=== PATIENT | female | born 1935 | race Caucasian/White ===

== ENCOUNTER 2019-02-12 09:56 | Inpatient (IN) | payer OTHER ==
[2019-02-12 10:15] LABS: PLATELET COUNT 314 10^3/uL (150-400)
--- NOTE | 2019-02-12 10:43 | EDPHY ---
H & P Time Seen by Provider: 02/12/19 10:36 HPI/ROS: Chief complaint. Syncope HPI. Patient 83-year-old female here by EMS after multiple syncopal episodes in [place]. She was standing and really had no prodrome and then slumped over. She laid down and then they tried to stand her back up and she had another syncopal episode. She has no injury. No fever cough. No chest discomfort or shortness of breath. She feels fairly back to normal. She tells me no previous syncope but daughter says that she may be did have a syncopal episode about 6 years ago. ROS 10 systems were reviewed and negative with the exception of the elements mentioned in the history of present illness Past Medical/Surgical History: Medication for heart problem, hypertension, chronic low back pain, dementia Social History: , nonsmoker, no alcohol Smoking Status: Never smoked Physical Exam: General Appearance: Alert well-developed female mild distress vital signs are stable Eyes: Pupils equal and round no pallor or injection. ENT, Mouth: Mucous membranes are moist. Respiratory: There are no retractions, lungs are clear to auscultation. Cardiovascular: Regular rate and rhythm. Gastrointestinal: Abdomen is soft and nontender, no masses, bowel sounds normal. Neurological: Awake and alert, sensory and motor exams grossly normal. Skin: Warm and dry, no rashes. Musculoskeletal: Neck is supple nontender. Extremities symmetrical, full range of motion. Psychiatric: Patient is oriented X 3, there is no agitation. Constitutional: Initial Vital Signs Temperature (C) 36.3 C 02/12/19 10:03 Heart Rate 62 02/12/19 10:03 Respiratory Rate 16 02/12/19 10:03 Blood Pressure 131/71 H 02/12/19 10:03 O2 Sat (%) 96 02/12/19 10:03 O2 Delivery Mode Room Air Allergies/Adverse Reactions: No Known Allergies Allergy (Verified 02/06/15 14:26) Home Medications: Medication Instructions Recorded traMADol [Ultram] 50 mg PO DAILY 02/18/14 Losartan/Hydrochlorothiazide 1 each PO DAILY 02/12/19 [Losartan-Hctz 100-25 mg Tab] Memantine HCl [Namenda] 10 mg PO DAILY 02/12/19 Medical Decision Making - Diagnostics EKG Interpretation: EKG interpreted by me as normal sinus rhythm. First-degree AV block. Normal axis. No significant ST elevation or depression. No arrhythmia. The rate is 60 Imaging Results: Imaging Impressions Chest X-Ray 02/12/19 10:56 Impression: 1. Negative portable chest. No acute process. 2. Hiatal hernia, chronic airways disease, and borderline cardiomegaly are unchanged since 5 years prior. Procedures: IV normal saline, ED Course/Re-evaluation: I consulted discussed case with Dr. Bae, hospitalist, who agrees to the admission Re-evaluation patient remained stable. The patient her daughter and I discussed imaging lab an EKG findings. We discussed treatment plan including recommendation for admission. They expressed understanding and agreement Differential Diagnosis: I considered a arrhythmia, acute coronary syndrome, electrolyte abnormality, orthostatic hypotension - Data Points Laboratory Results: Laboratory Results 02/12/19 10:00 02/12/19 10:00 02/12/19 02/12/19 02/12/19 10:04 10:00 10:00 WBC RBC Hgb Hct MCV MCH MCHC RDW Plt Count MPV Neut % (Auto) Lymph % (Auto) [place] % (Auto) Eos % (Auto) Baso % (Auto) Nucleat RBC Rel Count Absolute Neuts (auto) Absolute Lymphs (auto) Absolute Monos (auto) Absolute Eos (auto) Absolute Basos (auto) Absolute Nucleated RBC Immature Gran % Immature Gran # Sodium 128 mEq/L L mEq/L (135-145) Potassium 3.8 mEq/L mEq/L (3.5-5.2) Chloride 93 mEq/L L mEq/L (97-110) Carbon Dioxide 24 mEq/l mEq/l (22-31) Anion Gap 11 mEq/L mEq/L (6-14) BUN 34 mg/dL H mg/dL (7-23) Creatinine 1.1 mg/dL H mg/dL (0.6-1.0) Estimated GFR 47 Glucose 98 mg/dL mg/dL (70-100) Calcium 9.3 mg/dL mg/dL (8.5-10.4) POC Troponin I 0.00 ng/mL ng/mL (0.00-0.08) NT-Pro-B Natriuret Pep 130 pg/mL pg/mL (0-450) 02/12/19 10:00 WBC 5.22 10^3/uL 10^3/uL (3.80-9.50) RBC 3.35 10^6/uL L 10^6/uL (4.18-5.33) Hgb 11.3 g/dL L g/dL (12.6-16.3) Hct 32.0 % L % (38.0-47.0) MCV 95.5 fL fL (81.5-99.8) MCH 33.7 pg pg (27.9-34.1) MCHC 35.3 g/dL g/dL (32.4-36.7) RDW 14.2 % % (11.5-15.2) Plt Count 314 10^3/uL 10^3/uL (150-400) MPV 9.7 fL fL (8.7-11.7) Neut % (Auto) 59.0 % % (39.3-74.2) Lymph % (Auto) 25.7 % % (15.0-45.0) [place] % (Auto) 10.9 % % (4.5-13.0) Eos % (Auto) 2.9 % % (0.6-7.6) Baso % (Auto) 1.1 % % (0.3-1.7) Nucleat RBC Rel Count 0.0 % % (0.0-0.2) Absolute Neuts (auto) 3.08 10^3/uL 10^3/uL (1.70-6.50) Absolute Lymphs (auto) 1.34 10^3/uL 10^3/uL (1.00-3.00) Absolute Monos (auto) 0.57 10^3/uL 10^3/uL (0.30-0.80) Absolute Eos (auto) 0.15 10^3/uL 10^3/uL (0.03-0.40) Absolute Basos (auto) 0.06 10^3/uL 10^3/uL (0.02-0.10) Absolute Nucleated RBC 0.00 10^3/uL 10^3/uL (0-0.01) Immature Gran % 0.4 % % (0.0-1.1) Immature Gran # 0.02 10^3/uL 10^3/uL (0.00-0.10) Sodium Potassium Chloride Carbon Dioxide Anion Gap BUN Creatinine Estimated GFR Glucose Calcium POC Troponin I NT-Pro-B Natriuret Pep Medications Given: Sodium Chloride (Ns) 1,000 mls @ 100 mls/hr IV CONT GIULIANA Stop: 02/13/19 00:29 Last Admin: 02/12/19 15:31 Dose: 1,000 mls Discontinued Medications Sodium Chloride (Ns) 500 mls @ 0 mls/hr IV EDNOW ONE; Wide Open PRN Reason: Protocol Stop: 02/12/19 10:57 Last Admin: 02/12/19 11:10 Dose: 500 mls Point of Care Test Results: Chemistry 02/12/19 10:04 POC Troponin I 0.00 ng/mL ng/mL (0.00-0.08) Departure - Departure Disposition: [facility] Inpatient Acute Clinical Impression: Syncope Qualifiers: Syncope type: unspecified Qualified Code(s): R55 - Syncope and collapse Condition: Fair
[2019-02-12] MEDS ORDERED: NS 500 ML IV ONE (10:56)
[2019-02-12] MEDS ORDERED: ACETAMINOPHEN 325 MG TAB PO PRN (14:25)
[2019-02-12] MEDS ORDERED: ONDANSETRON 4 MG/2 ML VIAL IVP PRN (14:25)
[2019-02-12] MEDS ORDERED: NS 1,000 ML IV SCH (14:30)
--- NOTE | 2019-02-12 15:21 | CPEKG ---
Test Reason : OPEN Blood Pressure : / mmHG Vent. Rate : 060 BPM Atrial Rate : 060 BPM P-R Int : 246 ms QRS Dur : 097 ms QT Int : 436 ms P-R-T Axes : -20 020 025 degrees QTc Int : 436 ms Sinus rhythm Prolonged NE interval Low voltage, extremity leads Confirmed by Jose Dowling ([id number]) on 02/12/2019 3:20:25 PM Referred By: PHYSICIAN ED Confirmed By:Jose Dowling
--- NOTE | 2019-02-12 15:56 | GHP ---
[f rep st] HISTORY AND PHYSICAL DATE OF ADMISSION: 02/12/2019 CHIEF COMPLAINT: Syncope. HISTORY: The patient is an 83-year-old female, who was at [facility] this morning at 8:30 standing next to her son-in-law. He noticed that she suddenly reached for the pew in front of her. He called out to her but she seemed very dazed and she fell to the left and drifted over. There happened to be a p hysician at [facility] with them that morning who came over, felt her pulse and thought it to be thready. They lied her down on the ground. Her pulse seemed to be getting a little stronger so they sat her back up, but at that point, her pulse became thready again and she passed out again and EMS was call ed. When EMS arrived, her blood pressure was low. She was given IV fluid in the field. The patient has otherwise been feeling fine lately. Her diet and fluid intake have been at baseline. She has had no recent illnesses. She denies any pain. According to her daughter, she drinks very little fluid due to a low thirst drive and the daughter is constantly trying to get her to drink more water. She has a history of celiac disease, but due to her dementia she sometimes forgets and will eat a gluten that is in the home as not everyone in the household is gluten free. They do follow a l ow-salt diet. There has been no chest pain or shortness of breath. There were no stroke or seizure- like symptoms. There has been no recent diarrhea or vomiting. PAST MEDICAL HISTORY: 1. Hypertension. 2. SIADH with chronic hyponatremia. 3. Spinal stenosis. 4. Celiac disease. 5. Dementia. 6. B12 deficiency. MEDICATIONS: Please see computerized record for full details. ALLERGIES: No known drug allergies. SOCIAL HISTORY: No smoking. Very occasional glass a wine. Lives with her daughter and daughter's ghulam yu. She is a DNR. REVIEW OF SYSTEMS: Complete review of systems obtained. Review of systems negative regarding consti tutional, HEENT, GI, pulmonary, cardiovascular, , hematology, skin, muscular, endocrine, psych exce pt for positives and negative as in HPI. FAMILY HISTORY: Reviewed and noncontributory to presenting complaint. PHYSICAL EXAMINATION: GENERAL: Well-developed, well-nourished female, in no acute distress. VITAL SIGNS: Temperature is 36.3, pulse 70, blood pressure 112/72, saturating 96% on room air. EYES: Nor mal conjunctivae. Pupils react to light. ENT: Normal ears and nose. Hearing intact. Normal teeth . Oropharynx: Moist. NECK: Trachea midline. No thyromegaly. CHEST: Normal respiratory effort. LUNGS: Clear to auscultation bilaterally. CARDIOVASCULAR: Regular rate and rhythm. No murmur. E XTREMITIES: No lower extremity edema. ABDOMEN: Soft, nontender. No hepatosplenomegaly. SKIN: Wa rm, dry, intact without rash. MUSCULOSKELETAL: No cyanosis or clubbing. Strength 5/5 upper and low er extremities. NEUROLOGIC: Cranial nerves intact. Normal sensation to light touch. PSYCH: Alert and oriented x3. Normal affect. Normal judgment. Normal memory. LABORATORY DATA: White count 5.22, hematocrit 32.0, platelets 314. Sodium 128, potassium 3.8, chlor kareem 93, bicarb 24, BUN 34, creatinine 1.1. Glucose 98. BNP is 130. Troponins negative. EKG reviewed by me. My personal interpretation is normal sinus rhythm, prolonged VA interval. Chest x-ray is negative. ASSESSMENT/PLAN: 1. Syncope. It appears she had hypotension in the field. I suspect she is dehydrated due to her di uretic. Will watch her on telemetry. Check an echocardiogram and serial troponins. We will check o rthostatics. We will check a TSH. Will hydrate with IV fluids and hold hydrochlorothiazide. 2. Hyponatremia. She has syndrome of inappropriate antidiuretic hormone noted in the past with animal [facility] supervisor jessica hyponatremia on previous admissions. Urine sodiums have always been high. According to the daug hter, hydrochlorothiazide was started 1 year ago by her new primary care doctor when some lower extre mity edema was noted. This may have worsened her chronic underlying hyponatremia. She follows a low -salt diet and has never been told in the past to follow fluid restriction. We will discontinue hydr ochlorothiazide. There is no utility to repeating a urine sodium as she is currently actively on the diuretic. Urine sodium has been elevated in the past prior to initiating hydrochlorothiazide. Kyle mmended a liberalized salt diet and not pushing oral fluids. 3. Hypertension. We will discontinue hydrochlorothiazide and continue losartan alone. 4. Dementia. She is at baseline. Continue Namenda. 5. Celiac disease. Continue gluten-free diet. 6. Pelvic mass. There is a suprapubic pelvic firmness felt on exam. We will check an ultrasound. 7. Deep vein thrombosis prophylaxis. She is high risk. Will place on subcu Lovenox. CODE STATUS: DNR. ADMISSION STATUS: Will admit to observation. Reevaluate tomorrow regarding ongoing need for hospita lization. /[id number]/MODL
[2019-02-13 04:23] LABS: PLATELET COUNT 285 10^3/uL (150-400)
[2019-02-13] MEDS ORDERED: LOSARTAN POTASSIUM 50 MG TAB PO SCH (09:00)
[2019-02-13] MEDS: ENOXAPARIN 40 MG/0.4 ML SYR SC SCH (09:02)
[2019-02-13] MEDS: traMADol 50 MG TAB PO SCH (09:02)
[2019-02-13] MEDS: MEMANTINE HCL 5 MG TAB PO SCH (09:02)
--- NOTE | 2019-02-13 11:35 | ASMTCMCOM ---
CM Note CM Note Notes: Pts case discussed in treatment rounds. Pt is a 83 y/o female admitted for 2 syncopal episode. Therapies have been ordered and awaiting recommendations. Pt lives w/ her daughter and daughters family. Pts daughter is a RN. Needs are TBD at this time. CM to follow. Plan: TBD Date Signed: 02/13/2019 11:34 AM Electronically Signed By:SHADY Zhang
[2019-02-13] MEDS: LOSARTAN POTASSIUM 50 MG TAB PO SCH (12:35)
--- NOTE | 2019-02-13 13:39 | HOSPPROG ---
Hospitalist Progress Note Assessment/Plan: DIAGNOSES: * Syncope at home has not recurred here * Dehydration, hydrochlorothiazide likely a contributing factor * Acute kidney injury, likely due to dehydration and TAB-inhibitor * Hyponatremia due to combination of SIADH and hydrochlorothiazide * Normocytic anemia; appears likely chronic and I doubt she is bleeding but there is a drop overnight. This could be purely delusional but will want to recheck to make sure it is not dropping further * Pelvic mass on physical exam is found to be mons pubis by ultrasound, no further evaluation needed * Fall risk * Essential hypertension * Dementia * Celiac disease PLANS: * Will begin Oral fluid restriction, I have started education for patient and her daughter; however given the fact that she is 83 and has some dementia it is very likely that she has very poor oral fluid intake to begin with and fluid restriction may be insufficient * Stop her hydrochlorothiazide now and will continue off of that as outpatient; will need to follow her blood pressures and watch for any possible edema and consider other options such as non-diuretic antihypertensives, Lasix, or urea tablets as needed * Recheck her sodium in morning * Recheck hemoglobin in a.m. for stability * Losartan held this a.m. due to lower blood pressures; was given mid day * Will need to follow blood pressures closely make sure she is not at further risk for falling or injury * Due to need for ongoing monitoring and management as above, will need to keep her here in the hospital so will change to inpatient Seen by me today on hospitals rounds as well as multidisciplinary rounds I met with daughter at bedside today and discussed all of above in significant detail and answered questions for her SUBJECTIVE: Feeling better so far today OBJECTIVE Vitals reviewed: No signs of orthostasis were seen on measured numbers yesterday; intermittent hypotension at rest today Remotely Operated Vehicle, my review: Sinus rhythm Exam: alert oriented skin warm dry color ok resps not labored lungs clear BSs heart regular abd soft nondistended nontender, bowel sounds present limbs warm, no edema iv site ok Lab data: Sodium remains low at 128 Renal function improved creatinine was 0.9 Hemoglobin decreased from 11 to 10 today, normocytic; chronic baseline appears to possibly be approximately 11.5 but rarely checked 2 years ago I reviewed images from her ultrasound of pelvis which shows the palpable soft tissue density to be mons pubis Objective: Vital Signs Temp Pulse Resp BP Pulse Ox 36.5 C 88 12 115/69 90 L 02/13/19 11:00 02/13/19 11:00 02/13/19 11:00 02/13/19 12:34 02/13/19 11:00 Laboratory Results 02/13/19 03:10 02/13/19 03:10 02/12/19 02/13/19 02/14/19 06:59 06:59 06:59 Intake Total 2340 Output Total 1 Balance 2339 - Time Spent With Patient Time Spent with Patient: greater than 35 minutes Time Spent with Patient: Greater than 35 minutes spent on this patients care, greater than 50% of time spent counseling, educating, and coordinating care regarding the above mentioned plan. ICD10 Worksheet Patient Problems: Problems Problem Status Onset Syncope Acute Cardiac syncope Acute Essential hypertension Acute Hyponatremia Acute Sinusitis, acute, maxillary Acute
--- NOTE | 2019-02-13 13:47 | ECHO ---
[email or web address] [address] [address] Main: [phone] Echocardiography Examination Transthoracic Name: LYNN CATALAN MR#: [id number] Study Date: 02/13/2019 Study Time: 11:11 AM Date of : 1935 Age: 83 year(s) Height: 124.5 cm (49 in.) Weight: 59.87 kg (132 lb.) BSA: 1.35 m2 Gender: Female Examination: Echo Contrast: Image Quality: Adequate Rhythm: Normal sinus rhythm Heart Rate: 66 bpm BP: 92 mmHg/57 mmHg Indication: Cardiac: syncope Procedure Staff Referring Physician: Immigration Associate: Shahnaz Arora [facility] Reading Physician: Alex Salgado MD Requesting Provider: Indication: Cardiac: syncope Measurements Chambers AV/MV Label Value Normal Value Label Value Normal Value IVSd, 2D 1.1 cm (0.6cm - 1.1cm) AV PGmax 13 mmHg LVDd, 2D 3.1 cm (3.9cm - 5.3cm) AV PGmean 9 mmHg LVDs, 2D 2.1 cm (2.1cm - 4cm) AV Vmax 1.82 m/s LVEF, 2D 61 % (54% - 74%) LUCY D (continuity eq. 1.9 cm2 LVEF, BP 63 % (55% - 70%) VTI) LVEF, MOD2 62 % (55% - 70%) MV A Vmax 0.68 m/s LVEF, MOD4 65 % (55% - 70%) MV DT 282 ms LVOT PGmean 4 mmHg MV E' lateral 0.07 m/s LVOT Vmean 0.9 m/s MV E' mean 0.06 m/s LVOTd 1.9 cm (1.8cm - 2cm) MV E' septal 0.04 m/s LVPWd, 2D 0.7 cm MV E Vmax 0.89 m/s RVDd, 2D 3.4 cm (1.9cm - 3.8cm) MV E/A 1.31 TAPSE 1.8 cm MV E/E' lateral 12.8 LA Area, A2C 18.2 cm2 (0cm2 - 20cm2) MV E/E' mean 16.18 LA Volume, A2C 51 ml (22ml - 52ml) MV E/E' septal 21.2 (0.45 - 1.25) LA Volume, A4C 57 ml (22ml - 52ml) TV/PV LA Volume, BP 54 ml (22ml - 52ml) Label Value Normal Value LAD Index, 2D 2.67 cm/m2 RA Pressure 5 mmHg LADs, 2D 3.6 cm (2.7cm - 3.8cm) RVSP 26 mmHg LAESV index, MOD4 42.2 ml/m2 TR Pmax 21 mmHg Patient: LYNN CATALAN Study Date: 02/13/2019 Page 1 of 3 11:11 AM RA Area 8.3 cm2 TR Vmax 2.28 m/s Additional Vessels PV PGmax 3 mmHg Label Value Normal Value PV Vmax, Caliper 0.9 m/s (0.6m/s - 0.9m/s) AoAsc 3.2 cm AoRoot, 2D 2.9 cm (1.4cm - 2.6cm) Conclusions Left Ventricle: CONCLUSIONS:1)Normal LV size and sysotlic function with a LVEF of 63% and normal wall motions.2)Mild asymmetrical septal hypertrophy with no obstructing LVOT gradient.Moderate, stage II diastolic dysfunction noted.3)Mild left atrial enlargement noted.4)Aortic valve sclerosis without or AI noted.5)Mild MR without MV prolapse.6)Mild to moderate TR with estimated normal PA pressures. Findings Left Ventricle: Left ventricle is normal in size. CONCLUSIONS: 1)Normal LV size and sysotlic function with a LVEF of 63% and normal wall motions. 2)Mild asymmetrical septal hypertrophy with no obstructing LVOT gradient.Moderate, stage II diastolic dysfunction noted. 3)Mild left atrial enlargement noted. 4)Aortic valve sclerosis without or AI noted. 5)Mild MR without MV prolapse. 6)Mild to moderate TR with estimated normal PA pressures.The ejection fraction, measured by Simpsons method, is 63 %. There is asymmetrical septal hypertrophy without LVOT obstruction. There are no regional wall motion abnormalities. Grade II Diastolic Dysfunction. Right Ventricle: Normal size right ventricle. Right ventricular systolic function is normal. Left Atrium: The left atrium is mildly dilated. IAS: The interatrial septum is thin and anuerysmal with no obvious shunt noted by color flow doppler.. Right Atrium: The right atrium is normal in size. Mitral Valve: Mitral valve appears structurally normal. Mild mitral regurgitation. No mitral valve stenosis. There is mild mitral thickening. Aortic Valve: The aortic valve is structurally normal and trileaflet. No aortic valve regurgitation. There is no aortic stenosis. Aortic leaflets exhibit mild calcification. Tricuspid Valve: Tricuspid valve leaflets are structurally normal. Mild to moderate tricuspid regurgitation. The anterior and septal tricuspid leaflet chordae are elongated. Right Ventricular systolic pressure is measured at 26 mmHg. Pulmonary artery pressure normal. Pulmonic Valve: Pulmonic valve is poorly visualized. Trivial pulmonic valve regurgitation is present. Aorta: The aortic root size in 2D measures 2.9 cm. The aortic root exhibits normal size. The ascending aorta measures 3.2 cm. Ascending aorta is normal in size. Aorta Measurements AoRoot, 2D is 2.9 cm. Patient: LYNN CATALAN Study Date: 02/13/2019 Page 2 of 3 11:11 AM IVC: The inferior vena cava is normal in size and course. Pericardium: No pericardial effusion. Exam Details Procedure Ordered: Echo Procedure Status: Routine study Image Quality: Adequate Facility Location: Cardiac Echo 1 (No Signature Object) Patient: LYNN CATALAN Study Date: 02/13/2019 Page 3 of 3 11:11 AM [id number]
[2019-02-13] MEDS ORDERED: SODIUM BICARBONATE 650 MG TAB PO ONE (14:01)
--- NOTE | 2019-02-14 07:10 | PDMN ---
Medical Necessity Medical necessity: Pt meets inpt criteria per MD order and M-340, Syncope. 83 y/ o w/hx dementia, HTN, SIADH, and spinal stenosis admitted w/syncope/hypotension , dehydration (HCTZ likely contributing factor), and hyponatremia. Upgraded to inpt for ongoing monitoring of pt off HCTZ, start on fluid restriction, sodium still low at 128, normocytic anemia- recheck Hg today, follow BP's. Est LOS>2MN for ongoing management of above.
[2019-02-14] MEDS: ENOXAPARIN 40 MG/0.4 ML SYR SC SCH (09:13)
[2019-02-14] MEDS: MEMANTINE HCL 5 MG TAB PO SCH (09:13)
[2019-02-14] MEDS: LOSARTAN POTASSIUM 50 MG TAB PO SCH (09:14)
[2019-02-14] MEDS: traMADol 50 MG TAB PO SCH (09:14)
--- NOTE | 2019-02-14 16:19 | ASMTCMCOM ---
CM Note CM Note Notes: Pts case discussed in tx rounds. CM met w/ pt and daughter for dispo planning. PT/OT are recommending HC. Pt and daughter are agreeable to HC services through [facility]. [facility] is able to accept. CM confirmed pts address, phone number and PCP. Pts daughter is a RN. CM to follow. Plan: [facility]; PT, OT Date Signed: 02/14/2019 04:18 PM Electronically Signed By:SHADY Zhang
--- NOTE | 2019-02-14 16:30 | HOSPPROG ---
Hospitalist Progress Note Assessment/Plan: DIAGNOSES: * Syncope at home has not recurred here * Dehydration, hydrochlorothiazide likely a contributing factor * Acute kidney injury, likely due to dehydration and TAB-inhibitor * Hyponatremia due to combination of SIADH and hydrochlorothiazide * Normocytic anemia; appears likely chronic and I doubt she is bleeding but there is a drop overnight. This could be purely delusional but will want to recheck to make sure it is not dropping further * Pelvic mass on physical exam is found to be mons pubis by ultrasound, no further evaluation needed * Fall risk * Essential hypertension * Dementia * Celiac disease Despite being off hydrochlorothiazide and being rehydrated, and despite receiving today only 50 mg of losartan instead of her usual 100 she still has blood pressure as low as 92/67 this afternoon, which is lower than I am comfortable with in this patient having syncope at home, particularly as she is not likely to hydrate herself at home as well as we are hydrating her here PLANS: * Continue Oral fluid restriction; I have started education for patient and her daughter; however given the fact that she is 83 and has some dementia it is very likely that she has very poor oral fluid intake to begin with and fluid restriction may be insufficient * Continue off hydrochlorothiazide and that should not be restarted; * Will recheck her blood pressures through the night tonight and tomorrow morning before deciding whether to continue with any losartan and if so at what dose; may end up discharging her with no blood pressure medicines * Recheck her sodium in morning * Recheck hemoglobin in a.m. for stability * Losartan held this a.m. due to lower blood pressures; was given mid day * Will need to follow blood pressures closely make sure she is not at further risk for falling or injury * Due to low blood pressures and low sodium in this patient with syncope will watch again tonight as we continue to titrate therapy; anticipate likely discharge tomorrow Seen by me today on hospitals rounds as well as multidisciplinary rounds I met with daughter again at bedside today and discussed all of above in significant detail and answered questions for her SUBJECTIVE: Feels good, eating well Regarding ambulation she says "it is going a bit slow" and mentions that she still feels fairly weak though not specifically dizzy or lightheaded OBJECTIVE Vitals reviewed: No signs of orthostasis were seen on measured numbers yesterday; intermittent hypotension at rest today Slubber Operator, my review: Sinus rhythm Exam: alert oriented skin warm dry color ok resps not labored lungs clear BSs heart regular abd soft nondistended nontender, bowel sounds present limbs warm, no edema iv site ok Lab data: Sodium minimally improved at 129 BUN is improved at 25 but remains elevated at that level I reviewed images from her ultrasound of pelvis which shows the palpable soft tissue density to be mons pubis Objective: Vital Signs Temp Pulse Resp BP Pulse Ox 36.7 C 79 15 92/57 L 91 L 02/14/19 16:00 02/14/19 16:00 02/14/19 16:00 02/14/19 16:00 02/14/19 16:00 Laboratory Results 02/14/19 10:50 02/13/19 02/14/19 02/15/19 06:59 06:59 06:59 Intake Total 1400 Balance 1400 ICD10 Worksheet Patient Problems: Problems Problem Status Onset Syncope Acute Cardiac syncope Acute Essential hypertension Acute Hyponatremia Acute Sinusitis, acute, maxillary Acute
[2019-02-15 07:24] VITALS: BP 106/56
--- NOTE | 2019-02-15 08:53 | PDDCSUM ---
Discharge Summary Discharge Summary: DISCHARGE DIAGNOSES: * Syncope * Hyponatremia with known SIADH, likely contribution from hydrochlorothiazide as well * Mild dehydration * Hypotension on antihypertensive medicines, persisting after adequate rehydration * Acute kidney injury with resolved renal function here, due to combination of dehydration and losartan * Chronic stable normocytic anemia PROCEDURES: Echocardiogram with normal ejection fraction, mild MR and TR HOSPITAL COURSE SUMMARY: This patient came in the hospital with a syncopal spell at [facility]. There is no finding of any arrhythmia or acute cardiac abnormalities and her echocardiogram was unremarkable. She did have some evidence of dehydration with mild renal insufficiency, and there was also a sodium 128. Is notable that the patient has a history of SIADH diagnosed here in 2010, and she was taking HCTZ/losartan at home. Blood pressures initially looked good here however throughout the course of her hospital stay despite adequate hydration with IV saline, the patient's blood pressures were persistently low (syst 92-103, diast 55-66) despite withholding of all her blood pressure medicines. Currently she is tolerating these low blood pressures in that she is able to ambulate without any more difficulty than usual, does not have orthostatic or presyncopal symptoms. However given the fact that she just had syncope at home, and she will have recommendation for some limitation in fluid intake due to her SIADH, she is considered at risk for further syncopal type spells. Her serum sodium has come up from 128 to 129 with oral fluid restriction here. Is remaining stable at that level. The most recent sodium we have before this admission was in 2016 at which time it was 133 , so it is unclear exactly where her sodium has been recently. At this point she will be kept off of her blood pressure medicines. Hydrochlorothiazide in particular should be avoided because of her SIADH. She is to measure blood pressures at home and if they start to rise again at some point she may need to get back on some antihypertensive, and this can be determined through follow up with her primary care physician. She is currently stable for discharge to home. PENDING TEST RESULTS: None MEDICATION CHANGES: Her losartan and hydrochlorothiazide discontinued at this point Recommend that hydrochlorothiazide not be resumed due to her chronic SIADH May need to resume losartan or other blood pressure medicine depending on progression of her blood pressures over time FOLLOW-UP PLAN: With her primary care physician in 10-14 days She is to keep a list of blood pressures measured at home to take in to her primary care She is instructed to keep at an oral fluid restriction of 1600 mL per day She will need to have a recheck of her serum sodium Greater than 35 minutes bedside and care coordination time today
[2019-02-15] MEDS: MEMANTINE HCL 5 MG TAB PO SCH (08:55)
[2019-02-15] MEDS: traMADol 50 MG TAB PO SCH (08:56)
[2019-02-15] MEDS: ENOXAPARIN 40 MG/0.4 ML SYR SC SCH (08:56)
--- NOTE | 2019-02-15 14:15 | ASMTLACE ---
LACE Length of stay for Answers: 1 day current admission Acuity / Level of Answers: Yes Care: Did the patient have an inpatient admission? Comorbidities - select Answers: Dementia all that apply Opioid dependence / Chronic pain Previous myocardial infarction Other Notes: HTN; Spinal stenosis # of Emergency department Answers: 1-2 visits in the last 6 months Score: 14 Date Signed: 02/15/2019 02:15 PM Electronically Signed By:Estephania Hill RN
--- NOTE | 2019-02-15 15:16 | PDIAF ---
- Diagnosis Diagnosis: syncope Code Status: Do Not Resuscitate - Medication Management Discharge Medications: electronically signed and located in the Home Medication List. - Orders Services needed: Home Care, Registered Nurse, Physical Therapy Home Care Face to Face: I certify that this patient was under my care and that I had the required [id number] encounter meeting the encounter requirements on the discharge day. My findings support the fact that the patient is homebound as defined in Home Care Face to Face Continued: CMS Chapter 7 Medicare Benefits Manual 30.1.1 , The condition of the patient is such that there exists a normal inability to leave home and consequently, leaving home would require a considerable and taxing effort. Diet Recommendation: fluid restriction (use comment for amount) - Follow Up Care Current Providers and Referrals: Patient,NotPresent [Unknown] - As per Instructions
--- NOTE | 2019-02-15 16:22 | ASMTDCNOTE ---
Case Management Discharge Discharge Order Complete? Answers: Yes Patient to Obtain Answers: via Family Medications Transportation Arranged Answers: Family/Friends Faxed Final Orders Answers: Yes Notes: [facility] Agency/Facility Transfer Answers: Yes Notes: [facility] Report Printed & Faxed to Receiving Agency Discharge Comments Notes: 02/15/2019 Case Management Note Faxed final orders to [facility]. Notified on phone of d/c. Family transported pt home. Case Management d/c poc: HC RN PT Date Signed: 02/15/2019 04:22 PM Electronically Signed By:Estephania Hill RN
--- NOTE | 2019-02-15 16:23 | ASDISCHSUM ---
Discharge Information Plan Status:Home with Home Health Medically Cleared to Leave:02/15/2019 Discharge Date:02/15/2019 12:00 PM D/C Disposition:Home Health Service [facility] D/C Disposition:Home, Routine, Self-Care Projected Discharge Date:02/15/2019 11:00 AM Transportation at D/C:Family Discharge Delay Reason: Follow-Up Date:02/15/2019 11:00 AM Discharge Slot: Final Diagnosis: Placement Information Referral Type:*Home Health Care Services Referral ID:[id number] Provider Name:[facility] [address] 1[address] [place] [address] Address 2: [facility]:[place] Selection Factors: State:[place] Patient Contact Information Contact Name:PARAM Relationship:Daughter Address: Work Phone: [facility]:[place] Alternate Phone: [facility]/Zip Code:[place] [address] Email: Financial Information Financial Class:Medicare Advantage Plans Primary Plan Desc:[employer] PPO MEDICARE Primary Plan Number:[id number] Secondary Plan Desc: Secondary Plan Number: Assessment Information [facility] CM Progress Note CM Note CM Note Notes: Pts case discussed in treatment rounds. Pt is a 83 y/o female admitted for 2 syncopal episode. Therapies have been ordered and awaiting recommendations. Pt lives w/ her daughter and daughters family. Pts daughter is a RN. Needs are TBD at this time. CM to follow. Plan: TBD Date Signed: 02/13/2019 11:34 AM Electronically Signed By:SHADY Zhang LACE LACE Length of stay for Answers: 1 day current admission Acuity / Level of Answers: Yes Care: Did the patient have an inpatient admission? Comorbidities - select Answers: Dementia all that apply Opioid dependence / Chronic pain Previous myocardial infarction Other Notes: HTN; Spinal stenosis # of Emergency department Answers: 1-2 visits in the last 6 months Score: 14 Date Signed: 02/15/2019 02:15 PM Electronically Signed By:Estephania Hill RN [facility] CM Progress Note CM Note CM Note Notes: Pts case discussed in tx rounds. CM met w/ pt and daughter for dispo planning. PT/OT are recommending HC. Pt and daughter are agreeable to HC services through [facility]. [facility] is able to accept. CM confirmed pts address, phone number and PCP. Pts daughter is a RN. CM to follow. Plan: [facility]; PT, OT Date Signed: 02/14/2019 04:18 PM Electronically Signed By:SHADY Zhang Case Management Discharge Plan Note Case Management Discharge Discharge Order Complete? Answers: Yes Patient to Obtain Answers: via Family Medications Transportation Arranged Answers: Family/Friends Faxed Final Orders Answers: Yes Notes: [facility] Agency/Facility Transfer Answers: Yes Notes: [facility] Report Printed & Faxed to Receiving Agency Discharge Comments Notes: 02/15/2019 Case Management Note Faxed final orders to [facility]. Notified on phone of d/c. Family transported pt home. Case Management d/c poc: [facility] RN PT Date Signed: 02/15/2019 04:22 PM Electronically Signed By:Estephania Hill RN Intervention Information
== END 2019-02-15 12:00 | disposition home health service (06) | DRG 683 ==
LOC: EDUNIT# → INTOOBSV 11:43 → F2W 13:01 → OBSVTOIN 02-13 16:56
PROVIDERS: ADMIT Internal Medicine; ATTEND Internal Medicine
DX: N17.9 Acute kidney failure, unspecified (principal); E22.2 Syndrome of inappropriate secretion of antidiuretic hormone; R55 Syncope and collapse; E86.0 Dehydration; I10 Essential (primary) hypertension; I95.9 Hypotension, unspecified; F03.90 Unspecified dementia, unspecified severity, without behavioral disturbance, psychotic disturbance, mood disturbance, and anxiety; K90.0 Celiac disease; E53.8 Deficiency of other specified B group vitamins; D64.9 Anemia, unspecified
CPT/HCPCS: 84484-ER; 97116-GP; 97161-GP; 97165-GO; 97530-GO; 97535-GO; G0378; J1650